=== PATIENT | male | born 1970 | race Caucasian/White ===

== ENCOUNTER 2017-05-14 07:23 | Emergency (ER) | payer MEDICAID ==
--- NOTE | 2017-05-14 07:46 | Emergency Department Record ---
History of Present Illness - General Chief complaint: ENT Stated complaint: STREP THROAT Time Seen by Provider: 05/14/17 07:37 Source: Patient Mode of Arrival: Ambulatory Limitations: No limitations - History of Present Illness Initial comments: The patient is here due to being ill for 3 days. He has had nasal congestion and colored drainage, a mild ST, ear fullness, intermittent cough and feeling achy all over. The patient is heading out for vacation in 6 days. There has been no fever, chills, OLAYINKA, or SOB. MD complaint: Sore throat Onset/Timin -: Days(s) Severity: Moderate Severity scale (1-10): 3 Quality: Aching Consistency: Constant Improves with: None Worsens with: None - Related Data Home Medications Medication Instructions Recorded Confirmed Last Taken Metformin HCl 500 mg PO DAILY 05/14/17 05/14/17 1 Day Ago ~05/13/17 Previous Rx's Medication Instructions Recorded Azithromycin [Zithromax] 250 mg PO ASDIR #6 tab 05/14/17 Allergies Allergy/AdvReac Type Severity Reaction Status Date / Time No Known Drug Allergies Allergy Verified 05/14/17 07:35 Travel Screening - Travel/Exposure Within Last 30 Days Have you traveled within the last 30 days?: No - Travel/Exposure Within Last Year Have you traveled outside the [place] in the last year?: No - Additonal Travel Details Have you been exposed to anyone with a communicable illness?: No - Travel Symptoms Symptom Screening: None Review of Systems Constitutional: Denies: Chills, Fever Eyes: Denies: Eye discharge ENT: Reports: Congestion, Throat pain Respiratory: Reports: Cough, Dyspnea Past Medical History - SOCIAL HISTORY Smoking Status: Never smoker Alcohol Use: Occasional Alcohol Use Comment: weekly Drug Use: Rare Drug Use Detail:: Marijuana - RESPIRATORY Hx Respiratory Disorders: No - CARDIOVASCULAR Hx Cardio Disorders: No - NEURO Hx Neuro Disorders: No - GI Hx GI Disorders: No - Hx Genitourinary Disorders: No - ENDOCRINE Hx Diabetes: Yes Hx Thyroid Disease: No - MUSCULOSKELETAL Hx Musculoskeletal Disorders: No - PSYCH Hx Psych Problems: No - HEMATOLOGY/ONCOLOGY Hx Hematology/Oncology Disorders: No Family Medical History Any Significant Family History?: Yes Hx Diabetes: Father, Mother Hx Heart Disease: Mother, Grandparents Physical Exam - General General Appearance: Alert, Oriented x3, Cooperative, No acute distress - Head Head exam: Atraumatic, Normocephalic, Normal inspection - Eye Eye exam: Normal appearance, PERRL, EOMI - ENT ENT exam: negative: Normal exam, Normal orophraynx, TM's normal bilaterally ( There are mild effusions bilaterally but no erythema.) Throat exam: Tonsillar erythema. negative: Normal inspection, Tonsillomegaly, Tonsillar exudate, R peritonsillar mass, L peritonsillar mass - Neck Neck exam: Normal inspection, Full ROM. negative: Lymphadenopathy, Meningismus , Tenderness - Respiratory Respiratory exam: Normal lung sounds bilaterally. negative: Respiratory distress - Cardiovascular Cardiovascular Exam: Regular rate, Normal rhythm, Normal heart sounds Course Vital Signs 05/14/17 07:29 Temperature 98.4 F Pulse Rate 84 Respiratory 20 Rate Blood Pressure 132/86 Pulse Ox 94 L - Reevaluation(s) Reevaluation #1: I did explain to the patient that it appears he has a significant URI. We will treat him with a Zpak due to the nature of his complaints and he is to return to the ER if not better in 3-4 days. 05/14/17 07:51 Disposition Disposition: Discharge Clinical Impression: Upper respiratory infection Qualifiers: URI type: unspecified URI Qualified Code(s): J06.9 - Acute upper respiratory infection, unspecified Disposition: Home, Self-Care Condition: (1) Good Instructions: Pharyngitis (ED) Additional Instructions: Please drink plenty of fluids and use an OTC antihistamine decongestant as needed. Take the ZPak as directed. Please return to the ER for any worsening symptoms or if you are not better in 3-4 days. Prescriptions: Azithromycin [Zithromax] 250 mg PO ASDIR #6 tab Forms: Patient Portal Access Time of Disposition: 07:46 Quality - Quality Measures Quality Measures: N/A - Blood Pressure Screening View Details: Yes Does Patient Have Any of the Following: No Blood Pressure Classification: Pre-Hypertensive BP Reading Systolic Measurement: 132 Diastolic Measurement: 86 Screening for High Blood Pressure: < Pre-Hypertensive BP, F/U Documented > [ G8950] Pre-Hypertensive Follow-up Interventions: Referral to alternative/primary care provider.
== END 2017-05-14 08:11 | disposition home or self-care (01) ==
LOC: ER 07:23
DX: J06.9 Acute upper respiratory infection, unspecified (principal); J02.9 Acute pharyngitis, unspecified
CPT/HCPCS: 99282

== ENCOUNTER 2017-09-14 07:12 | Day surgery (SDC) | payer MEDICAID ==
[2017-09-14] MEDS ORDERED: ONDANSETRON HCL IV 4 MG/2 ML VIAL IVP ONE (07:22)
[2017-09-14] MEDS ORDERED: MORPHINE SULFATE 5 MG/ML PFS IVP ONE ×3 (07:22→21:54)
--- NOTE | 2017-09-14 07:28 | Emergency Department Record ---
History of Present Illness - General Chief complaint: Flank Pain Stated complaint: KIDNEY STONE Time Seen by Provider: 09/14/17 07:21 Source: Patient Mode of Arrival: Ambulatory Limitations: No limitations - History of Present Illness Initial comments: 47 yo male presents with right flank pain that started last night. The intensity comes and goes. He has had some associated nausea. The pain is similar to prior kidney stones. He passes prior stones. No fevers. No blood in urine or stones. No recent changes in his health. No current PCP. No pain in the scrotum or testicles. No rash. MD Complaint: Other (Right flank pain) Location: Right flank Radiation: None Severity: Severe Severity scale (1-10): 9 Quality: Stabbing Consistency: Constant Improves with: None Worsens with: None Reports: Nausea/vomiting - Related Data Home Medications Medication Instructions Recorded Confirmed Last Taken Liraglutide [Victoza 3-Eddi] 1.8 units SQ QAM 09/14/17 09/14/17 09/13/17 Allergies Allergy/AdvReac Type Severity Reaction Status Date / Time cephalexin [From Keflex] Allergy Severe HIVES Verified 09/14/17 07:18 Travel Screening - Travel/Exposure Within Last 30 Days Have you traveled within the last 30 days?: No Review of Systems Constitutional: Denies: Chills, Fever, Malaise, Weakness Eyes: Denies: Eye discharge ENT: Denies: Congestion, Throat pain Respiratory: Denies: Cough Cardiovascular: Denies: Chest pain, Palpitations, Syncope Endocrine: Denies: Fatigue Gastrointestinal: Reports: As per HPI, Abdominal pain, Nausea, Vomiting. Denies : Diarrhea Genitourinary: Denies: Dysuria, Frequency, Hematuria Musculoskeletal: Reports: As per HPI, Back pain. Denies: Arthralgia Skin: Denies: Bruising, Change in color, Rash Neurological: Denies: Headache, Numbness, Weakness Psychiatric: Denies: Anxiety Hematological/Lymphatic: Denies: Blood Clots, Easy bleeding, Easy bruising, Swollen glands Past Medical History - SOCIAL HISTORY Smoking Status: Never smoker Alcohol Use: Occasional Drug Use: None - RESPIRATORY Hx Respiratory Disorders: No - CARDIOVASCULAR Hx Cardio Disorders: No - NEURO Hx Neuro Disorders: No - GI Hx GI Disorders: No - Hx Genitourinary Disorders: Yes Hx Kidney Stones: Yes - ENDOCRINE Hx Endocrine Disorders: Yes Hx Diabetes: Yes Hx Thyroid Disease: No - MUSCULOSKELETAL Hx Musculoskeletal Disorders: No - PSYCH Hx Psych Problems: No - HEMATOLOGY/ONCOLOGY Hx Hematology/Oncology Disorders: No Family Medical History Any Significant Family History?: Yes Hx Diabetes: Father, Mother Hx Heart Disease: Mother, Grandparents Physical Exam - General General Appearance: Alert, Oriented x3, Cooperative, No acute distress Limitations: No limitations - Head Head exam: Normal inspection - Eye Eye exam: Normal appearance, PERRL. negative: Conjunctival injection, Scleral icterus - ENT ENT exam: Normal exam Ear exam: Normal external inspection Nasal Exam: Normal inspection Mouth exam: Normal external inspection Teeth exam: Normal inspection Throat exam: Normal inspection - Neck Neck exam: Normal inspection, Full ROM. negative: Tenderness - Respiratory Respiratory exam: Normal lung sounds bilaterally. negative: Respiratory distress - Cardiovascular Cardiovascular Exam: Regular rate, Normal rhythm, Normal heart sounds - GI/Abdominal GI/Abdominal exam: Soft, Normal bowel sounds. negative: Tenderness Course Vital Signs 09/14/17 07:14 Temperature 97.3 F L Pulse Rate 67 Respiratory 20 Rate Blood Pressure 135/71 Pulse Ox 95 - Reevaluation(s) Reevaluation #1: 09/14/17 07:28 Vitals reviewed No acute changes 09/14/17 08:08 No acute changes on the CBC The glucose is 230 09/14/17 08:58 12mm x 14mm Right renal stone at the level of the right renal pelvis. No hydronephrosis at this time. Intermittent obstruction is possible. 09/14/17 09:23 UA reviewed. Blood noted. 09/14/17 09:[address] scan was discussed with Dr Schumacher The patient will have a ureteral stent placed here at [facility] today Medical Decision Making - Lab Data Result diagrams: 09/14/17 07:15 09/14/17 07:15 Disposition Disposition: Admit Clinical Impression: Elevated blood sugar level, Renal calculus Disposition: Still a Patient at [facility] Decision to Admit: Admit from ER Decision to Admit Date: 09/14/17 Decision to Admit Time: :43 Time Discussed w/Accepting Physician: :43 Instructions: Hyperglycemia, Non-Diabetic (ED) Additional Instructions: Call the numbers provided for a new family doctor You will need further testing to check your blood sugar Forms: Patient Portal Access Time of Disposition: :43 Quality - Quality Measures Quality Measures: N/A - Blood Pressure Screening Does Patient Have Any of the Following: No Blood Pressure Classification: Pre-Hypertensive BP Reading Systolic Measurement: 135 Diastolic Measurement: 71 Screening for High Blood Pressure: < Pre-Hypertensive BP, F/U Documented > [ G8950] Pre-Hypertensive Follow-up Interventions: Referral to alternative/primary care provider.
[2017-09-14 07:30] LABS: BASO % 0.5 % (0-6); GRAN % 49.1 % (47-80); HEMOGLOBIN 15.2 gm/dl (14.0-18.0); LYMPH % 35.9 % (16-45); MEAN CORPUSCULAR HEMOGLOBIN 29.4 pg (27-33); MEAN CORPUSCULAR HGB CONC 33.8 g/dl (32-36); MEAN PLATELET VOLUME 9.2 fl (7.4-10.4); MONO % 12.5 % (0-9); PLATELET COUNT 214 K/uL (130-400); RED BLOOD COUNT 5.17 M/uL (4.40-5.70); RED CELL DISTRIBUTION WIDTH 13.5 % (11.5-14.5); WHITE BLOOD COUNT W/O DIFF 6.5 K/uL (4.2-12.2)
[2017-09-14 07:48] LABS: BLOOD UREA NITROGEN 17 mg/dL (6-20); CREATININE 0.7 mg/dL (0.7-1.2); EST GLOMERULAR FILTRATION RATE > 60 mL/min; GLUCOSE,RANDOM 230 mg/dL (74-109)
[2017-09-14] MEDS ORDERED: 0.9 % SODIUM CHLORIDE 1000ML 1,000 ML IV ONE (08:44)
[2017-09-14 09:12] LABS: URINE APPEARANCE CLOUDY; URINE BILIRUBIN NEGATIVE (NEGATIVE); URINE BLOOD LARGE (NEGATIVE); URINE COLOR BROWN; URINE GLUCOSE (UA) NEGATIVE (NEGATIVE); URINE KETONE NEGATIVE (NEGATIVE); URINE LEUKOCYTE ESTERASE NEGATIVE (NEGATIVE); URINE NITRITE NEGATIVE (NEGATIVE); URINE UROBILINOGEN 0.2 E.U./dL (0.20 - 1.00)
[2017-09-14 09:20] LABS: URINE BACTERIA FEW; URINE EPITHELIAL CELLS 0 - 2 (FEW); URINE WBC 0 - 2 (0-2/hpf)
[2017-09-14] MEDS ORDERED: MORPHINE SULFATE 5 MG/ML PFS IM PRN (10:48)
[2017-09-14] MEDS ORDERED: 0.9 % SODIUM CHLORIDE 1000ML 1,000 ML IV PRN (10:48)
[2017-09-14] MEDS ORDERED: ONDANSETRON HCL IV 4 MG/2 ML VIAL IVP PRN (10:48)
[2017-09-14] MEDS ORDERED: MORPHINE SULFATE 5 MG/ML PFS IVP PRN (11:00)
--- NOTE | 2017-09-14 12:34 | CT SCAN REPORT ---
EXAM: EMERGENCY CT OF THE ABDOMEN AND PELVIS WITHOUT CONTRAST HISTORY: ACUTE RIGHT FLANK PAIN WITH NAUSEA SINCE THE MIDDLE OF THE NIGHT. TECHNIQUE: Axial CT scan of the abdomen and pelvis was performed without oral or IV contrast. Comparison: None. FINDINGS: No intrarenal calculi seen on the left. There is a single relatively large calculus in the right renal pelvis measuring about 12.7 mm in diameter and 14.4 mm in length. There is no appreciable hydronephrosis on the right and this does not appear to be currently obstructing although based on its size and location in the right renal pelvis it could be causing intermittent right UPJ obstruction. There is no hydronephrosis or hydroureter on either side with no ureteral calculus seen on either side and no bladder calculus evident. No calcified gallstones are seen within the gallbladder. Evaluation of the bowel and viscera is very limited without oral or IV contrast. Given this limitation, no definite hepatic, splenic, adrenal, pancreatic, or right renal mass identified. There is questionably a subtle low attenuation mass in the left kidney about 1.5 cm in size with a CT density of 19. Comparison with any prior post contrast abdomen CT scans could be useful for further evaluation, or if clinically warranted, this could be further assessed with a follow-up MRI of the kidneys if not contraindicated. Small periumbilical anterior abdominal wall hernia containing adipose tissue, but no bowel. The appendix appears negative with no appendicitis evident. No free intraperitoneal air or free intraperitoneal fluid identified. Facet joint arthropathy in the lower lumbar spine and some mild to moderate spurring in the lower thoracic spine. IMPRESSION: 1. SINGLE RELATIVELY LARGE CALCULUS IN THE RIGHT RENAL PELVIS MEASURING ABOUT 12.7 MM IN DIAMETER AND 14.4 MM IN LENGTH. NO CURRENT HYDRONEPHROSIS, BUT THIS MAY BE CAUSING INTERMITTENT RIGHT UPJ OBSTRUCTION BASED ON ITS LOCATION AND SIZE. NO OTHER URINARY TRACT CALCULUS IDENTIFIED. 2. QUESTIONABLE SUBTLE 1.5 CM SLIGHTLY LOW ATTENUATION MASS LEFT KIDNEY DESCRIBED ABOVE. 3. MILD DEGENERATIVE CHANGES IN THE SPINE. JOB NUMBER: [id number] [facility]
[2017-09-14] MEDS ORDERED: METOCLOPRAMIDE 10 MG TABLET PO ONE (15:00)
[2017-09-14] MEDS ORDERED: ACETAMINOPHEN 1,000 MG/100 ML BTL IV ONE (15:00)
[2017-09-14] MEDS ORDERED: FAMOTIDINE 20MG TABLET PO ONE (15:00)
[2017-09-14] MEDS ORDERED: MECLIZINE 25 MG TABLET PO ONE (15:00)
[2017-09-14] MEDS ORDERED: CLINDAMYCIN 600MG/50ML PREMIX 600 MG/50 ML BAG IVPB ONE (15:15)
--- NOTE | 2017-09-14 16:53 | History & Physical ---
History of Present Illness - Date of Service Date of Service for History & Physical: 09/14/17 - History of Present Illness Admitting Diagnosis: Right renal stone, obstructing History of Present Illness: Mr. Pennington is a 47 y.o male with complaint of right flank and abdominal pain. He says he has had intermittent lower back pain for the past several weeks which became worse over the psat few days. He has a history of kidney stones having been admitted previously with similar complaint. He denies fever, chills , bloody discharge, scrotal swelling or tenderness. CT abdomen/pelvis reveals as large stone measuring 12.7x14.4mm. Urology was consulted and plans for stent placed arranged this afternoon. The patient is admitted for observation until the procedure is performed and can be discharged thereafter with follow up for further workup. I spoke to Dr. Schumacher prior to OR this afternoon and he plans for discharge after if no complications. Travel Screening - Travel/Exposure Within Last 30 Days Have you traveled within the last 30 days?: No - Travel/Exposure Within Last Year Have you traveled outside the [place] in the last year?: No - Additonal Travel Details Have you been exposed to anyone with a communicable illness?: No - Travel Symptoms Symptom Screening: None Review of Systems Constitutional: Denies: Chills, Fever, Malaise, Weakness Eyes: Denies: Eye discharge ENT: Denies: Congestion, Throat pain Respiratory: Denies: Cough Cardiovascular: Denies: Chest pain, Palpitations, Syncope Endocrine: Denies: Fatigue Gastrointestinal: Reports: As per HPI, Abdominal pain, Nausea, Vomiting. Denies : Diarrhea Genitourinary: Denies: Dysuria, Frequency, Hematuria Musculoskeletal: Reports: As per HPI, Back pain. Denies: Arthralgia Skin: Denies: Bruising, Change in color, Rash Neurological: Denies: Headache, Numbness, Weakness Psychiatric: Denies: Anxiety Hematological/Lymphatic: Denies: Blood Clots, Easy bleeding, Easy bruising, Swollen glands Past Medical History - SOCIAL HISTORY Smoking Status: Never smoker Alcohol Use: Occasional Alcohol Use Comment: weekend - RESPIRATORY Hx Respiratory Disorders: No - CARDIOVASCULAR Hx Cardio Disorders: No Comment:: walks daily - NEURO Hx Neuro Disorders: Yes Hx Headaches: Yes (due to lack of caffeine) - GI Hx GI Disorders: Yes Hx Abdominal Pain: Yes (rt flank pain) - Hx Genitourinary Disorders: Yes Hx Kidney Stones: Yes (hx in last 15 yrs-8 stones) - ENDOCRINE Hx Endocrine Disorders: Yes Hx Diabetes: Yes Hx Thyroid Disease: No Comment:: last A1c 5.9 90 days ago - MUSCULOSKELETAL Hx Musculoskeletal Disorders: No - PSYCH Hx Psych Problems: No - HEMATOLOGY/ONCOLOGY Hx Hematology/Oncology Disorders: No Family Medical History Any Significant Family History?: Yes Hx Diabetes: Father, Mother Hx Heart Disease: Mother, Grandparents H&P Meds/Allergies - Allergies Allergies: Allergies Allergy/AdvReac Type Severity Reaction Status Date / Time cephalexin [From Keflex] Allergy Severe HIVES Verified 09/14/17 07:18 - Home Medications Home Medications Medication Instructions Recorded Confirmed Last Taken Liraglutide [Victoza 3-Eddi] 1.8 units SQ QAM 09/14/17 09/14/17 09/13/17 - Active Medications Active Medications: Current Medications Sodium Chloride () 1,000 mls @ 125 mls/hr IV .Q8H PRN PRN Reason: LARGE VOLUME IV Last Admin: 09/14/17 10:56 Dose: 125 mls/hr Morphine Sulfate (Morphine Sulfate) 5 mg IVP Q4HR PRN PRN Reason: Pain - General Stop: 09/21/17 10:49 Ondansetron HCl (Zofran) 4 mg IVP Q4H PRN PRN Reason: NAUSEA Physical Exam - Vital Signs Vital Signs: Vital Signs - Last 24 Hrs Temp Pulse Resp BP Pulse Ox 09/14/17 12:48 97.9 F 56 L 18 127/65 95 09/14/17 10:48 98.0 F 61 18 98/56 95 - General General Appearance: Alert, Oriented x3, Cooperative, No acute distress Limitations: No limitations - Head Head exam: Normal inspection - Eye Eye exam: Normal appearance, PERRL. negative: Conjunctival injection, Scleral icterus - ENT ENT exam: Normal exam Ear exam: Normal external inspection Nasal Exam: Normal inspection Mouth exam: Normal external inspection Teeth exam: Normal inspection Throat exam: Normal inspection - Neck Neck exam: Normal inspection, Full ROM. negative: Tenderness - Respiratory Respiratory exam: Normal lung sounds bilaterally. negative: Respiratory distress - Cardiovascular Cardiovascular Exam: Regular rate, Normal rhythm, Normal heart sounds - GI/Abdominal GI/Abdominal exam: Soft, Normal bowel sounds. negative: Tenderness Results - Labs Result Diagrams: 09/14/17 07:15 09/14/17 07:15 Labs Last 24 Hours: Laboratory Results - last 24 hr 09/14/17 16:24 POC Glucose 105 VTE H&P Assessment - Risk for VTE Risk for VTE: No Risk Level: Very Low Risk Assessment Date: 09/14/17 Risk Assessment Time: 17:04 VTE Orders Placed or Will Be Placed: No VTE Reason for No Prophylaxis: Not Indicated Plan - Detailed Diagnosis and Plan (1) Renal calculus Current Visit: Yes Status: Acute Base Code: N20.0 - CALCULUS OF KIDNEY Comment: - CT abdomen/pelvis: large 12.7x14mm calculus in the right renal pelvis. Labs negative for infection. - IV moprhine, fluids and prep for OR this afternoon - Urology consulted and plan for right ureteral stent placement this afternoon. (2) Diabetes mellitus, type II Current Visit: Yes Status: Acute Base Code: E11.9 - TYPE 2 DIABETES MELLITUS WITHOUT COMPLICATIONS Comment: - CBG 230 - pt on Metfromin at home. (3) Patient is full code Current Visit: Yes Status: Acute Base Code: Z78.9 - OTHER SPECIFIED HEALTH STATUS - Disposition D/C after sent placement
--- NOTE | 2017-09-14 20:53 | Discharge Summary ---
Providers Discharge Summary Date: 09/15/17 Date of admission: 09/14/17 10:30 Expected Date of Discharge: 09/14/17 Attending physician: NARENDRA CHENEY Primary care physician: ANNEMARIE MIRANDA M.D. Physical Exam - Vital Signs Vital Signs: Vital Signs - Last 24 Hrs Temp Pulse Resp BP Pulse Ox 09/14/17 19:58 98.1 F 58 L 16 146/83 95 09/14/17 19:15 50 L 18 128/70 95 09/14/17 18:45 97.5 F L 53 L 18 137/75 95 09/14/17 18:00 60 18 146/86 96 09/14/17 12:48 97.9 F 56 L 18 127/65 95 09/14/17 10:48 98.0 F 61 18 98/56 95 - General General Appearance: Alert, Oriented x3, Cooperative, No acute distress Limitations: No limitations - Head Head exam: Normal inspection - Eye Eye exam: Normal appearance, PERRL. negative: Conjunctival injection, Scleral icterus - ENT ENT exam: Normal exam Ear exam: Normal external inspection Nasal Exam: Normal inspection Mouth exam: Normal external inspection Teeth exam: Normal inspection Throat exam: Normal inspection - Neck Neck exam: Normal inspection, Full ROM. negative: Tenderness - Respiratory Respiratory exam: Normal lung sounds bilaterally. negative: Respiratory distress - Cardiovascular Cardiovascular Exam: Regular rate, Normal rhythm, Normal heart sounds - GI/Abdominal GI/Abdominal exam: Soft, Normal bowel sounds. negative: Tenderness Hospitalization - Hospitalization Admission Diagnosis: Right renal stone, obstructing - Problem List/Discharge Diagnosis (1) Renal calculus Status: Acute Base Code: N20.0 - CALCULUS OF KIDNEY Comment: - CT abdomen/pelvis: large 12.7x14mm calculus in the right renal pelvis. Labs negative for infection. - IV moprhine, fluids and prep for OR this afternoon - Urology consulted and plan for right ureteral stent placement this afternoon. (2) Diabetes mellitus, type II Status: Acute Base Code: E11.9 - TYPE 2 DIABETES MELLITUS WITHOUT COMPLICATIONS Comment: - CBG 230 - pt on Metfromin at home. (3) Patient is full code Status: Acute Base Code: Z78.9 - OTHER SPECIFIED HEALTH STATUS - Disposition D/C after sent placement - Hospitalization Course Disposition: Home, Self-Care Hospital Course: Mr. Pennington is a 47 y.o male with complaint of right flank and abdominal pain. He says he has had intermittent lower back pain for the past several weeks which became worse over the past few days. He has a history of kidney stones having been admitted previously with similar complaint. He denies fever, chills , bloody discharge, scrotal swelling or tenderness. CT abdomen/pelvis reveals as large stone measuring 12.7x14.4mm. Urology was consulted and plans for stent placed arranged this afternoon. The patient is admitted for observation until the procedure is performed and can be discharged thereafter with follow up for further workup. I spoke to Dr. Schumacher prior to OR this afternoon and he plans for discharge after if no complications. The patient returned from the OR and there were no reported complications. The patient was able to pass urine after w/o pain or discomfort. He was discharged shortly after procedure with instruction to follow up with urology and his pcp. Procedures: Imaging and X-Rays 09/14/17 17:46 FLUOROSCOPY CHARGE 1 HR [RAD] Routine Cardiology Procedures 09/14/17 13:44 EKG NOW Condition at Discharge: (1) Good Discharge Medications - Discharge Medications Home Medications: Ambulatory Orders Metformin HCl 500 mg PO DAILY 05/14/17 [Last Taken 09/13/17] Liraglutide [Victoza 3-Eddi] 1.8 units SQ QAM 09/14/17 [Last Taken 09/13/17] Discharge Plan - Discharge Instructions Activity at Discharge: Resume Usual Activities As Tolerated Diet at Discharge: Regular Diet Instructions: Kidney Stones (DC), Urethral Stent Placement (DC), Hyperglycemia , Non-Diabetic (ED) Additional Instructions: 2 Activity: advance as tolerated 2 Diet: advance as tolerated 2 Consults: [] 2 Follow Up: [Dr. Schumacher office will call] 2 Dressing/Wound Care: (Type) (Change) 2 Additional: [Call physician if increased blood or clots in urine, pain is not relieved by [place], nausea is not relieved by Zofran] Quality Measures - Quality Measures Quality Measures: Documentation of Current Medications in Medical Record, Screening for High Blood Pressure and F/U Documented - Current Medications Quality Measure: Measure #130: Documentation of Current Medications Documentation of Current Medications: <Current Medications Documented/Reviewed> [P5554] - Blood Pressure Screening Quality Measure: Screening for High Blood Pressure and Follow-Up Documented Does Patient Have Any of the Following: No Blood Pressure Classification: Pre-Hypertensive BP Reading Systolic Measurement: 122 Diastolic Measurement: 67 Screening for High Blood Pressure: < Pre-Hypertensive BP, F/U Documented > [ G8950] Pre-Hypertensive Follow-up Interventions: Follow-up with rescreen every year. - Elder Abuse Suspicion Index EASI Reference Information: Stephen HUSAIN, Jono C, Erick Duffy, Mario Sen.Development and validation of a tool to assist physicians identification of elder abuse: The Elder Abuse Suspicion Index (EASI ). Journal of Elder Abuse and Neglect, 2008; 20 (3): 276-300.
[2017-09-14] MEDS ORDERED: *PACU ONLY* KETAMINE HCL 10 MG/ML (20ML) VIAL IV ONE (21:54)
[2017-09-14] MEDS ORDERED: PROPOFOL 10 MG/ML VIAL IV ONE (21:54)
[2017-09-14] MEDS ORDERED: MIDAZOLAM HCL 2MG/2ML VIAL IV ONE (21:54)
--- NOTE | 2017-09-15 12:30 | Operative Note ---
DATE OF SERVICE: 09/14/2017. DATE OF SURGERY: 09/14/2017. PREOPERATIVE DIAGNOSIS: Right renal and ureteral calculus. POSTOPERATIVE DIAGNOSIS: Right renal calculus. OPERATION: Cystoscopy, urethral dilation, right retrograde pyelogram, right ureteral stone manipulation, and insertion of right ureteral stent. Anesthesia: Sedation. Surgeon: Vlad Schumacher M.D. Wild Animal Caretaker: None. PROCEDURE: Preop informed consent was obtained. Antibiotics were given. Sedation was administered. Patient was brought to the operating room at [facility], placed carefully in lithotomy position with genitalia prepped and draped sterilely. Cystoscopy was performed. The urethra appears unremarkable. The urethral meatus was tight, I should note, and required dilating with Ranjeet sounds to achieve a caliber of 22 Latvian to allow insertion of the cystoscope. Urethra appeared unremarkable otherwise. The prostate appeared mildly visually obstructive. The bladder was entered and inspected. Both ureteral orifices had normal appearance and positioning. Injection of contrast was performed into the right ureter, and fluoroscopic images were obtained. Given the fine detail limitations of mobile fluoroscopy in an obese patient, I did not see any obvious distal ureteral filling defect or obstruction. There is a large, rounded, calcified stone in the expected area of the right renal calculus, and after injection of contrast, this appeared to be in the area of the proximal ureter. A guidewire was advanced beyond the stone and manipulated the stone up into the renal pelvis, and after this a 25 cm, double-J stent was left in correct position both proximally and distally. There was rapid drainage of contrast and urine through the distal curl into the bladder at that point, again indicating good positioning, and the procedure was terminated. Patient was awakened and transferred to recovery in stable condition. PLAN: The patient will be discharged to home from the hospital when stable, and he will be scheduled for right-sided lithotripsy as soon as possible. He was given prescription for pain medication, as well as a short course of outpatient antibiotics. TORI
--- NOTE | 2017-09-15 12:30 | Medical Records Consult ---
DATE OF CONSULTATION: 09/14/2017 REASON FOR CONSULTATION: Right renal calculus. CASE SUMMARY: A 47-year-old male with history of right-sided flank pain who presented to [facility]. He does have a history of passing stones in the past but no prior urological surgeries have been required up until this time. CT scan shows a 1.4 cm stone in the right renal pelvis. PAST MEDICAL HISTORY: Noted per the chart and includes diabetes. PAST SURGICAL HISTORY: Noted per the chart. Negative for urological surgeries. MEDICATIONS: Noted per the chart. ALLERGIES: KEFLEX. REVIEW OF SYSTEMS: Ten-plus per the chart. PHYSICAL EXAMINATION: GENERAL: The patient is awake, alert, appears in [id number] distress. He appears overall obese. VITAL SIGNS: Temperature 97.3, heart rate 67, blood pressure 135/71. NECK: No masses. CHEST: Normal expansion without wheezing. ABDOMEN: Obese, soft, nontender. There is mild right costovertebral angle tenderness. GENITOURINARY: Circumcised phallus without lesions. Testes are descended bilaterally without any obvious abnormality. NEUROLOGIC: The patient shows no focal. LABORATORY DATA: White count 6.5, hemoglobin 15.2, platelets 214,000. BUN 17, creatinine 0.7, glucose 230. RADIOGRAPHIC DATA: CT scan was reviewed personally and results are noted as above and per the medical record. There is no evidence of any distal ureteral stone or hydronephrosis. IMPRESSION: Large right renal calculus, possibly intermittently obstructing causing intermittent right flank pain. PLAN: Discussed with the patient and family members to proceed with cystoscopy, retrograde pyelogram, insertion of stent with further recommendations to follow. I discussed the procedure with the patient in detail including potential risks of pain, bleeding, infection, iatrogenic injury, and the very likely need for future diagnostic and/or therapeutic procedures. He understands and wishes to proceed. Thank you for the opportunity to see this patient in consultation today. CC: Dr. Cherry VALLE
== END 2017-09-14 21:55 | disposition home or self-care (01) ==
LOC: ER 07:12 → MEDSURG 10:30 → SUR 10:30 → UNDOADMOB 10:30 → SUR 16:54 → MEDSURG 17:58 → UNDODISOB 21:55 → SUR 21:55
PROVIDERS: ATTEND Urology
DX: N20.0 Calculus of kidney (principal)
CPT/HCPCS: 52332; 00910; 99285 ×2; 96374; 96365; 96375; 85025; 80048; 36416; 81001; 82948; 76000; 74176; 93005; 93010; C1769; Q9962; J2405; J2270; J7030

== ENCOUNTER 2017-09-27 04:28 | Emergency (ER) | payer MEDICAID ==
--- NOTE | 2017-09-27 04:52 | Emergency Department Record ---
History of Present Illness - General Chief complaint: Flank Pain Stated complaint: left side pain Time Seen by Provider: 09/27/17 04:44 Source: Patient Mode of Arrival: Ambulatory Limitations: No limitations - History of Present Illness Initial comments: 47 yo male presents with left sided flank pain that started about midnight. He does have a right sided stent in the place from a large right sided renal stone. He reports that side is doing very well. No fevers. He did have some darkening or reddish tinted urine this morning. The left sided pain is sharp. No changes in bowel function. No diarrhea. No rash. No stones seen in the urine. The patient is scheduled for lithotripsy in 2 weeks at [facility]. Complaint: Other (Left flank pain) Onset/Timin -: Hour(s) Location: Left flank Radiation: None Severity scale (1-10): 9 Quality: Sharp Consistency: Constant Improves with: Medication Worsens with: Urination Other Reports: Denies other symptoms - Related Data Sexually active: Yes Previous Rx's Medication Instructions Recorded Cyclobenzaprine HCl [Flexeril] 10 mg PO TID #15 tablet 09/27/17 Allergies Allergy/AdvReac Type Severity Reaction Status Date / Time cephalexin [From Keflex] Allergy Severe HIVES Verified 09/14/17 07:18 Travel Screening - Travel/Exposure Within Last 30 Days Have you traveled within the last 30 days?: No - Travel/Exposure Within Last Year Have you traveled outside the [place] in the last year?: No - Additonal Travel Details Have you been exposed to anyone with a communicable illness?: No - Travel Symptoms Symptom Screening: None Review of Systems Constitutional: Denies: Chills, Fever, Malaise, Weakness Eyes: Denies: Eye discharge, Eye pain, Photophobia, Vision change ENT: Denies: Congestion, Throat pain Respiratory: Denies: Cough, Dyspnea, Hemoptysis, Stridor, Wheezes Cardiovascular: Denies: Chest pain, Palpitations, Syncope Endocrine: Denies: Fatigue Gastrointestinal: Denies: Abdominal pain, Diarrhea, Nausea, Vomiting Genitourinary: Reports: As per HPI, Dysuria, Hematuria. Denies: Frequency, Retention Musculoskeletal: Reports: Back pain. Denies: Arthralgia, Joint swelling, Myalgia, Neck pain Skin: Denies: Bruising, Change in color, Rash Neurological: Denies: Headache, Numbness, Vertigo, Weakness Psychiatric: Denies: Anxiety Hematological/Lymphatic: Denies: Blood Clots, Easy bleeding, Easy bruising, Swollen glands Past Medical History - SOCIAL HISTORY Smoking Status: Never smoker Alcohol Use: Rare Drug Use: None - RESPIRATORY Hx Respiratory Disorders: No - CARDIOVASCULAR Hx Cardio Disorders: No Comment:: walks daily - NEURO Hx Neuro Disorders: Yes Hx Headaches: Yes (due to lack of caffeine) - GI Hx GI Disorders: Yes Hx Abdominal Pain: Yes (rt flank pain) - Hx Genitourinary Disorders: Yes Hx Kidney Stones: Yes (hx in last 15 yrs-8 stones) - ENDOCRINE Hx Endocrine Disorders: Yes Hx Diabetes: Yes Hx Thyroid Disease: No Comment:: last A1c 5.9 90 days ago - MUSCULOSKELETAL Hx Musculoskeletal Disorders: No - PSYCH Hx Psych Problems: No - HEMATOLOGY/ONCOLOGY Hx Hematology/Oncology Disorders: No Family Medical History Any Significant Family History?: No Hx Diabetes: Father, Mother Hx Heart Disease: Mother, Grandparents Physical Exam - General General Appearance: Alert, Oriented x3, Cooperative, No acute distress Limitations: No limitations - Head Head exam: Normal inspection - Eye Eye exam: Normal appearance, PERRL. negative: Conjunctival injection, Scleral icterus - ENT ENT exam: Normal exam, Mucous membranes moist Ear exam: Normal external inspection Nasal Exam: Normal inspection Mouth exam: Normal external inspection Teeth exam: Normal inspection - Neck Neck exam: Normal inspection, Full ROM. negative: Tenderness - Respiratory Respiratory exam: Normal lung sounds bilaterally. negative: Respiratory distress - Cardiovascular Cardiovascular Exam: Regular rate, Normal rhythm, Normal heart sounds - GI/Abdominal GI/Abdominal exam: Soft. negative: Distended, Guarding, Rebound, Rigid, Tenderness - Rectal Rectal exam: Deferred - Extremities Extremities exam: Normal inspection, Full ROM, Normal capillary refill. negative: Tenderness - Back Back exam: Reports: Normal inspection, CVA tenderness (L), Full ROM, Tenderness - Neurological Neurological exam: Alert, Normal gait, Oriented X3 - Psychiatric Psychiatric exam: Normal affect, Normal mood - Skin Skin exam: Dry, Intact, Normal color, Warm Course Vital Signs 09/27/17 04:30 Temperature 97.9 F Pulse Rate 67 Respiratory 20 Rate Blood Pressure 138/94 Pulse Ox 96 - Reevaluation(s) Reevaluation #1: 09/27/17 04:54 The vitals were reviewed No acute changes 09/27/17 04:56 Normal CR on recent visit 09/27/17 05:17 No acute changes on the CBC or CMP except glucose of 216 09/27/17 05:51 The UA is negative for infection The CT scan demonstrates an appropriately placed double j stent on the right. NO other acute process The results were discussed with the patient. No acute findings on the labs, UA , or CT Medical Decision Making - Lab Data Result diagrams: 09/27/17 04:45 09/27/17 04:45 Disposition Disposition: Discharge Clinical Impression: Flank pain Disposition: Home, Self-Care Condition: (1) Good Instructions: Flank Pain (ED) Additional Instructions: Return if you have any fever, vomiting, unable to urinate or any new concerns Rest and avoid over exertion or lifting. Prescriptions: Cyclobenzaprine HCl [Flexeril] 10 mg PO TID #15 tablet Forms: Patient Portal Access Time of Disposition: 05:52 Quality - Quality Measures Quality Measures: N/A - Blood Pressure Screening Does Patient Have Any of the Following: No Blood Pressure Classification: Normal BP Reading Systolic Measurement: 118 Diastolic Measurement: 78 Screening for High Blood Pressure: < Normal BP, F/U Not Required > [G8783]
[2017-09-27] MEDS ORDERED: KETOROLAC 30 MG/ML VIAL IVP ONE (04:55)
[2017-09-27] MEDS ORDERED: ACETAMINOPHEN 1,000 MG/100 ML BTL IVPB ONE (04:55)
[2017-09-27 05:01] LABS: HEMATOCRIT 42.7 % (42.0-52.0); HEMOGLOBIN 14.5 gm/dl (14.0-18.0); MEAN CELL VOLUME 85.9 fl (81-97); MEAN CORPUSCULAR HEMOGLOBIN 29.2 pg (27-33); MEAN PLATELET VOLUME 9.2 fl (7.4-10.4); PLATELET COUNT 242 K/uL (130-400); RED BLOOD COUNT 4.97 M/uL (4.40-5.70); RED CELL DISTRIBUTION WIDTH 13.5 % (11.5-14.5); WHITE BLOOD COUNT W/O DIFF 6.9 K/uL (4.2-12.2)
[2017-09-27 05:10] LABS: BLOOD UREA NITROGEN 13 mg/dL (6-20); CREATININE 0.7 mg/dL (0.7-1.2); EST GLOMERULAR FILTRATION RATE > 60 mL/min; TOTAL PROTEIN 6.3 g/dL (6.6-8.7)
[2017-09-27 05:12] LABS: GLUCOSE,RANDOM 216 mg/dL (74-109)
[2017-09-27 05:15] LABS: ALB/GLOB RATIO 2.3 (1.1-1.8); ALBUMIN 4.4 g/dL (4.0-5.0); ALKALINE PHOSPHATASE 64 U/L (40-129); ALT/SGPT 26 U/L (<41); AST/SGOT 17 U/L (10.0-50.0)
[2017-09-27 05:21] LABS: PARTIAL THROMBOPLASTIN TIME 29.3 SECONDS (24.5-39.1); PROTHROMBIN TIME (PATIENT) 10.3 SECONDS (9.5-12.1)
[2017-09-27 05:48] LABS: URINE APPEARANCE CLEAR; URINE BILIRUBIN NEGATIVE (NEGATIVE); URINE BLOOD LARGE (NEGATIVE); URINE COLOR YELLOW; URINE GLUCOSE (UA) NEGATIVE (NEGATIVE); URINE KETONE NEGATIVE (NEGATIVE); URINE LEUKOCYTE ESTERASE TRACE (NEGATIVE); URINE NITRITE NEGATIVE (NEGATIVE); URINE UROBILINOGEN 0.2 E.U./dL (0.20 - 1.00)
[2017-09-27 05:57] LABS: URINE BACTERIA FEW; URINE EPITHELIAL CELLS 0 - 2 (FEW)
--- NOTE | 2017-09-28 07:43 | CT SCAN REPORT ---
EXAM: CT OF THE ABDOMEN AND PELVIS HISTORY: RIGHT SIDED FLANK PAIN. TECHNIQUE: CT of the abdomen and pelvis was performed without oral or IV contrast. This limits evaluation of bowel and solid visceral organs. Comparison: Prior CT from 09/14/17. FINDINGS: Limited evaluation of the lung bases is unremarkable. The osseous structures are grossly intact. Limited evaluation of the liver, spleen, adrenal glands, and pancreas is unremarkable. The gallbladder is present, contracted. There is a right ureteral stent in place. There is an approximately 14 mm calculus in the right renal pelvis with equivocal/mild right sided hydronephrosis. Mild perinephric and periureteral inflammatory stranding on the right. No other definitive urinary tract calculi. No free air or free fluid. Abundant stool in the colon. IMPRESSION: RIGHT URETERAL STENT IN PLACE. 14 MM CALCULUS IN THE RIGHT RENAL PELVIS WITH MILD HYDRONEPHROSIS. MILD RIGHT SIDED PERINEPHRIC AND PERIURETERAL INFLAMMATORY STRANDING. JOB NUMBER: [id number] MTDD
== END 2017-09-27 06:17 | disposition home or self-care (01) ==
LOC: ER 04:28
DX: R10.32 Left lower quadrant pain (principal); E11.9 Type 2 diabetes mellitus without complications; Z87.442 Personal history of urinary calculi
CPT/HCPCS: 99284 ×2; 96365; 96375; 85730; 85610; 80053; 81001; 85027; 74176; J1885

== ENCOUNTER 2017-12-30 04:34 | Emergency (ER) | payer MEDICAID ==
[2017-12-30] MEDS ORDERED: ONDANSETRON HCL IV 4 MG/2 ML VIAL IVP ONE (04:46)
[2017-12-30] MEDS ORDERED: KETOROLAC 30 MG/ML VIAL IVP ONE (04:46)
--- NOTE | 2017-12-30 04:50 | Emergency Department Record ---
History of Present Illness - General Chief complaint: Flank Pain Stated complaint: FLANK PAIN Time Seen by Provider: 12/30/17 04:45 Source: Patient Mode of Arrival: Ambulatory Limitations: No limitations - History of Present Illness Initial comments: 47 yo male presents to ED for evaluation of right sided flank pain symptoms that began just prior to arrival. Patient reports similar symptoms related to previous kidney stone on the right, underwent lithotrypsy for 13x9 mm calculus. Patient denies fevers, chills, nausea, or vomiting symptoms and reports a history of NIDDM. MD Complaint: Other (flank pain) Onset/Timin -: Hour(s) Location: Right flank Severity: Severe Severity scale (1-10): 9 Consistency: Constant Improves with: None Worsens with: None Reports: Denies other symptoms - Related Data Home Medications Medication Instructions Recorded Confirmed Last Taken Glimepiride [Amaryl] 2 mg PO DAILY 12/30/17 12/30/17 Unknown Previous Rx's Medication Instructions Recorded Hydrocodone/Acetaminophen [Mifflin 1 each PO Q6H PRN #10 tablet 12/30/17 5-325 Tablet] Tamsulosin HCl [Flomax] 0.4 mg PO DAILY #15 cap.er.24h 12/30/17 Allergies Allergy/AdvReac Type Severity Reaction Status Date / Time cephalexin [From Keflex] Allergy Severe HIVES Verified 09/14/17 07:18 Travel Screening - Travel/Exposure Within Last 30 Days Have you traveled within the last 30 days?: No - Travel/Exposure Within Last Year Have you traveled outside the [place] in the last year?: No - Additonal Travel Details Have you been exposed to anyone with a communicable illness?: No - Travel Symptoms Symptom Screening: None Review of Systems Constitutional: Denies: Chills, Fever, Malaise, Night sweats Eyes: Denies: Eye discharge, Eye pain ENT: Denies: Congestion, Ear pain, Epistaxis Respiratory: Denies: Cough, Dyspnea Cardiovascular: Denies: Chest pain, Dyspnea on exertion Endocrine: Denies: Fatigue, Heat or cold intolerance Gastrointestinal: Denies: Abdominal pain, Nausea, Vomiting Genitourinary: Denies: Testicular pain, Testicular mass Musculoskeletal: Reports: Back pain. Denies: Arthralgia, Gout, Joint swelling Skin: Denies: Bruising, Change in color Neurological: Denies: Abnormal gait, Confusion, Headache, Seizure Psychiatric: Denies: Anxiety Hematological/Lymphatic: Denies: Anemia, Blood Clots Past Medical History - SOCIAL HISTORY Smoking Status: Never smoker Alcohol Use: None Drug Use: None - RESPIRATORY Hx Respiratory Disorders: No - CARDIOVASCULAR Hx Cardio Disorders: No Comment:: walks daily - NEURO Hx Neuro Disorders: Yes Hx Headaches: Yes (due to lack of caffeine) - GI Hx GI Disorders: No - Hx Genitourinary Disorders: Yes Hx Kidney Stones: Yes (hx in last 15 yrs-8 stones) - ENDOCRINE Hx Endocrine Disorders: Yes Hx Diabetes: Yes Hx Thyroid Disease: No Comment:: last A1c 5.9 90 days ago - MUSCULOSKELETAL Hx Musculoskeletal Disorders: No - PSYCH Hx Psych Problems: No - HEMATOLOGY/ONCOLOGY Hx Hematology/Oncology Disorders: No Family Medical History Any Significant Family History?: No Hx Diabetes: Father, Mother Hx Heart Disease: Mother, Grandparents Physical Exam - General General Appearance: Alert, Oriented x3, Cooperative, Moderate distress (appears uncomfortable due to pain) Limitations: No limitations - Head Head exam: Atraumatic, Normocephalic, Normal inspection Head exam detail: negative: Abrasion, Contusion, Martines's sign, General tenderness, Hematoma, Laceration - Eye Eye exam: Normal appearance. negative: Conjunctival injection, Periorbital swelling, Periorbital tenderness, Scleral icterus - ENT Ear exam: negative: Auricular hematoma, Auricular trauma Nasal Exam: negative: Active bleeding, Discharge, Dried blood, Foreign body Mouth exam: negative: Drooling, Laceration, Tongue elevation - Neck Neck exam: Normal inspection. negative: Meningismus, Tenderness - Respiratory Respiratory exam: Normal lung sounds bilaterally. negative: Rales, Respiratory distress, Rhonchi, Stridor - Cardiovascular Cardiovascular Exam: Regular rate, Normal rhythm, Normal heart sounds - GI/Abdominal GI/Abdominal exam: Soft. negative: Rebound, Rigid, Tenderness - Rectal Rectal exam: Deferred - exam: Deferred - Extremities Extremities exam: Normal inspection. negative: Calf tenderness, Pedal edema, Tenderness - Back Back exam: Reports: CVA tenderness (R). Denies: CVA tenderness (L) - Neurological Neurological exam: Alert, Normal gait, Oriented X3 - Psychiatric Psychiatric exam: Normal affect, Normal mood - Skin Skin exam: Normal color. negative: Abrasion Type of lesion: negative: abrasion Course Vital Signs 06/07/18 04:40 Temperature 97.6 F Pulse Rate [ 55 L Pulse Ox Probe] Respiratory 20 Rate Blood Pressure 163/87 [Left Arm] Pulse Ox 97 - Reevaluation(s) Reevaluation #1: 12/30/17 05:11 Labs reviewed and are grossly unremarkable except for glucose 320. UA pending. Patient is currently in CT imaging. Patient reports that his pain symptoms are improved, denies the need for further analgesia at this time. Reevaluation #2: 12/30/17 06:05 UA obtained, no evidence for infection or blood, >[address] pending. Reevaluation #3: 12/30/17 06:24 CT Abdomen and Pelvis: Mild hydronephrosis and hydroureter 3 mm distal UVJ calculus Patient was updated on all results, reports that his pain symptoms are manageable, and appears stable for discharge at this time. Medical Decision Making - Lab Data Result diagrams: 12/30/17 04:45 12/30/17 04:45 Disposition Disposition: Discharge Clinical Impression: Ureteral calculus, right Disposition: Home, Self-Care Condition: (2) Stable Instructions: Ureteral Stones (ED) Additional Instructions: Return to ED if your symptoms worsen or if you have any concerns. Flomax and Mifflin as directed. Follow-up with Dr. Schumacher in 3-5 days as directed. Prescriptions: Hydrocodone/Acetaminophen [Mifflin 5-325 Tablet] 1 each PO Q6H PRN #10 tablet PRN Reason: Pain - Moderate (5-7) Tamsulosin HCl [Flomax] 0.4 mg PO DAILY #15 cap.er.24h Forms: Patient Portal Access Time of Disposition: 06:25 Quality - Quality Measures Quality Measures: N/A - Blood Pressure Screening Does Patient Have Any of the Following: No Blood Pressure Classification: Pre-Hypertensive BP Reading Systolic Measurement: 130 Diastolic Measurement: 64 Screening for High Blood Pressure: < Pre-Hypertensive BP, F/U Documented > [ G8950] Pre-Hypertensive Follow-up Interventions: Referral to alternative/primary care provider.
[2017-12-30 04:54] LABS: BASO % 0.3 % (0-6); EOS % 0.9 % (0-6); GRAN % 53.6 % (47-80); HEMATOCRIT 46.8 % (42.0-52.0); HEMOGLOBIN 15.7 gm/dl (14.0-18.0); LYMPH % 31.1 % (16-45); MEAN CELL VOLUME 86.7 fl (81-97); MEAN CORPUSCULAR HEMOGLOBIN 29.1 pg (27-33); MEAN CORPUSCULAR HGB CONC 33.5 g/dl (32-36); MEAN PLATELET VOLUME 9.6 fl (7.4-10.4); MONO % 14.1 % (0-9); PLATELET COUNT 213 K/uL (130-400); RED CELL DISTRIBUTION WIDTH 13.9 % (11.5-14.5); WHITE BLOOD COUNT W/O DIFF 6.8 K/uL (4.2-12.2)
[2017-12-30] MEDS ORDERED: 0.9 % SODIUM CHLORIDE 1000ML 1,000 ML IV SCH (05:00)
[2017-12-30 05:02] LABS: BLOOD UREA NITROGEN 16 mg/dL (6-20); CREATININE 0.7 mg/dL (0.7-1.2); EST GLOMERULAR FILTRATION RATE > 60 mL/min
[2017-12-30 05:05] LABS: GLUCOSE,RANDOM 320 mg/dL (74-109)
[2017-12-30 05:07] LABS: ALT/SGPT 36 U/L (<41)
[2017-12-30 05:08] LABS: ALB/GLOB RATIO 1.7 (1.1-1.8); ALBUMIN 4.4 g/dL (4.0-5.0); ALKALINE PHOSPHATASE 71 U/L (40-129); AST/SGOT 24 U/L (10.0-50.0)
[2017-12-30 05:51] LABS: URINE APPEARANCE CLEAR; URINE BILIRUBIN NEGATIVE (NEGATIVE); URINE BLOOD TRACE-I (NEGATIVE); URINE COLOR YELLOW; URINE KETONE NEGATIVE (NEGATIVE); URINE LEUKOCYTE ESTERASE NEGATIVE (NEGATIVE); URINE NITRITE NEGATIVE (NEGATIVE); URINE PROTEIN NEGATIVE (NEGATIVE); URINE UROBILINOGEN 0.2 E.U./dL (0.20 - 1.00)
[2017-12-30 05:53] LABS: URINE GLUCOSE (UA) >=1000 mg/dL (NEGATIVE)
[2017-12-30] MEDS ORDERED: HYDROCODONE/APAP 7.5/325MG TABLET PO ONE (06:25)
--- NOTE | 2018-01-01 08:33 | CT SCAN REPORT ---
DATE: 12/30/2017 at 5:07 a.m. EXAM: EMERGENCY CT OF THE ABDOMEN AND PELVIS WITHOUT CONTRAST. HISTORY: Right flank pain and right-sided back pain for two hours. A history of kidney stones. TECHNIQUE: Axial CT scan of the abdomen and pelvis performed without oral or intravenous contrast. Preliminary report provided by [facility]. COMPARISON: CT of the abdomen and pelvis dated 09/27/2017. FINDINGS: Since the prior examination, the previously seen right ureteral stent has been removed. There are multiple nonobstructing intrarenal calculi on the right, particularly in the lower pole and also one in the dependant portion of the renal pelvis. No intrarenal calculi seen on the left. There is hydronephrosis on the right and also dilatation of the right ureter leading down into the pelvis where it becomes contiguous with an approximately 4.4 mm calculus a short distance from the right ureterovesical junction itself. Distal to this, the right ureter is nondilated. There is no bladder calculus present and no hydronephrosis or hydroureter on the left with no left ureteral calculus present. A small amount of prostate calcification, also present previously. No calcified gallstones are seen within the gallbladder. Evaluation of the bowel and viscera is quite limited without oral or intravenous contrast. Given this limitation, no definite hepatic, splenic, adrenal, pancreatic, or renal mass identified. No appendicitis evident. No free intraperitoneal air or free intraperitoneal fluid identified. There is a small periumbilical anterior abdominal wall hernia containing adipose tissue but no bowel. Prominent facet joint arthropathy in the lower lumbar spine. There is a suggestion of a small, approximately 1.5 cm low-attenuation mass in the upper pole of the left kidney. This is quite subtle on this noncontrast study and was probably present previously as well. This has a noncontrast CT density of 15 and is probably just an incidental small renal cyst. This could be confirmed with an MRI of the kidneys if felt clinically warranted. IMPRESSION: 1. AN APPROXIMATELY 4.4 MM LOWER RIGHT URETERAL CALCULUS CAUSING A COMPONENT OF OBSTRUCTION ON THE RIGHT. 2. ADDITIONAL, CURRENTLY NONOBSTRUCTING INTRARENAL CALCULI IN THE RIGHT KIDNEY. 3. A SMALL PERIUMBILICAL ANTERIOR ABDOMINAL WALL HERNIA CONTAINING ADIPOSE TISSUE BUT NO BOWEL. 4. FACET JOINT ARTHROPATHY IN THE LOWER LUMBAR SPINE. 5. APPENDIX IS NEGATIVE. NO FREE AIR OR FREE FLUID EVIDENT. 6. QUESTIONABLE 1.5 CM CYST IN THE LEFT KIDNEY. JOB NUMBER: [id number] MTDD
== END 2017-12-30 06:35 | disposition home or self-care (01) ==
LOC: ER 04:34
DX: N13.2 Hydronephrosis with renal and ureteral calculous obstruction (principal); E11.9 Type 2 diabetes mellitus without complications; Z87.442 Personal history of urinary calculi
CPT/HCPCS: 99284 ×2; 96374; 96375; 96361; 85025; 80053; 81003; 74176; J1885; J2405; J7030